=== PATIENT | male | born 1940 | race Caucasian/White ===

== ENCOUNTER → 2022-07-11 | Day surgery (SDC) | payer MEDICARE, OTHER ==
[2022-07-07 16:15] VITALS: BMI 25.9
[~2022-07-11] MED LIST: LACTATED RINGERS 1,000 ML IV ONE; LACTATED RINGERS 1,000 ML IV SCH; LIDOCAINE 1% (10MG/ML) FOR IV START INTRADERMA PRN; ONDANSETRON 4 MG/2 ML VIAL IVP PRN; PROPOFOL 10 MG/ML 20 ML VIAL IV ONE; SODIUM CHLORIDE 0.9% 100 ML IV ONE
[2022-07-11 06:50] VITALS: TEMP 97.9
--- NOTE | 2022-07-11 07:56 | P.PCN ---
Date of Procedure: 07/11/22 Procedure(s) Performed: BRIEF HISTORY: Patient is a 82-year-old pleasant white male scheduled for an elective colonoscopy as a part of evaluation of positive cologuard/screening for colon cancer PROCEDURE PERFORMED: Colonoscop with snare polypectomy/Endo Clip placement and tattooing with Mary y. PREOPERATIVE DIAGNOSIS: Screening for colon cancer/positive cologuard. IV sedation per Anesthesia. PROCEDURE: After informed consent was obtained, the patient, was brought into the endoscopy unit. IV sedation was administered by Anesthesia under continuous monitoring. Digital rectal examination was normal. Initially the Olympus CF-160 flexible video colonoscope was then inserted in the rectum, gradually advanced into the cecum without any difficulty. Careful examination was performed as the scope was gradually being withdrawn. Ileocecal valve and the appendiceal orifice were visualized and appeared normal. Prep was excellent. Mucosa of the cecum, ascending colon, appeared normal. In the hepatic flexure there was a 4 cm broad-based polyp that was removed by piecemeal snare polypectomy and almost complete polypectomy was accomplished. At the polypectomy site there was some oozing identified. 2 endoclips were placed with good hemostasis. Tattooing was performed with Mary ink in the hepatic flexure polyp. In the descending colon there was a 1 cm polyp removed by snare polypectomy. Rest of the transverse colon, descending colon, sigmoid colon, and rectum appeared normal. Retroflexion was performed in the rectum and no lesions were seen. The patient tolerated the procedure well. IMPRESSION: 4 cm broad-based hepatic flexure polyp status post piecemeal snare polypectomy followed by Endo Clip placement and tattooing with Mary ink and almost complete polypectomy accomplished 1 cm descending colon polyp status post polypectomy RECOMMENDATIONS: Findings of this examination were discussed with the patientas well as his family. He was advised to follow with the biopsy results. He'll be seen in office in one week. Based the biopsy results will plan a repeat colonoscopy in 3-6 months..
[2022-07-11 08:01] VITALS: BP 143/76; PULSE 65; RESP 16
== END ==
LOC: ORWHC2ENDO 06:14
PROVIDERS: ATTEND Internal Medicine Gastroenterology
DX: R19.5 Other fecal abnormalities (principal); D12.3 Benign neoplasm of transverse colon; D12.4 Benign neoplasm of descending colon
CPT/HCPCS: 88305; 45385; 45381; J2704; 45382

== ENCOUNTER → 2022-07-21 | Outpatient (CLI) | payer MEDICARE, OTHER ==
--- NOTE | 2022-07-21 10:26 | US ---
EXAMINATION TYPE: US abdomen complete DATE OF EXAM: 07/21/2022 COMPARISON: NONE CLINICAL HISTORY: R74.01 elevated liver levels. TECHNIQUE: Multiple sonographic images of the abdomen are obtained. FINDINGS: EXAM MEASUREMENTS: Liver Length: 12.6 cm Gallbladder Wall: -- cm CBD: 0.34 cm Spleen: 8.7 cm Right Kidney: 9.7 x 4.1 x 5.0 cm Left Kidney: 11.2 x 5.2 x 4.4 cm [employer] NOTES: Pancreas: wnl Liver: Heterogeneous, lobular, multiple anechoic masses, largest measured: 1. Lower right lobe 4.5 x 4.2 x 5.1cm 2. Mid/medial right lobe 3.5 x 2.9 x 3.5cm 3. Upper right lobe 3.1 x 3.2 x 2.9cm (complex) Gallbladder: Not visualized, patient does not remember a gallbladder surgery. CBD: wnl Spleen: wnl Right Kidney: wnl Left Kidney: Multiple anechoic masses: 1. Lateral 2.3 x 1.7 x 2.1cm 2. Lower 3.0 x 2.1 x 1.9cm 3. Medial 1.0 x 0.65 x 1.1cm Upper IVC: wnl Abd Aorta: Limited view. Multiple cysts demonstrated within the liver with a complex cyst within the upper right lobe measurin g up to 3.2 cm. Nonvisualization of the gallbladder. Spleen is unremarkable. No hydronephrosis. Multi ple cysts within the left kidney. No contour deforming solid mass or shadowing calculi. IMPRESSION: 1. Multiple cysts within the liver with a complex cyst within the right upper lobe. Further evaluatio n with CT or MR abdomen liver mass protocol is recommended. 2. Left renal cysts.
== END | disposition home or self-care (01) ==
LOC: RADUSWWP 09:34
PROVIDERS: ATTEND Internal Medicine
DX: N28.1 Cyst of kidney, acquired (principal); K76.89 Other specified diseases of liver; R74.01 Elevation of levels of liver transaminase levels
CPT/HCPCS: 76700